=== PATIENT | female | born 1985 | race Hispanic/Latino ===

== ENCOUNTER 2018-12-17 19:41 | Emergency (ER) | payer BC ==
[~2018-12-17] VITALS: Ht 152.4 cm; Wt 79.4 kg
[2018-12-17] MEDS ORDERED: ONDANSETRON HCL INJ 2MG/ML 2ML 2 MG/ML VIAL ONE (19:54)
[2018-12-17] MEDS ORDERED: SODIUM CHLORIDE 0.9% 1000ML 1,000 ML ONE (19:55)
[2018-12-17] MEDS ORDERED: ONDANSETRON HCL INJ 2MG/ML 2ML 2 MG/ML VIAL IV STA (19:57)
[2018-12-17] MEDS ORDERED: SODIUM CHLORIDE 0.9% 1000ML 1,000 ML IV ONE (20:00)
[2018-12-17 20:09] LABS: BASOPHILS % 0.3 % (0.0-1.0); EOSINOPHILS % 0.1 % (0.0-6.0); HEMATOCRIT 41.3 % (34.2-44.1); HEMOGLOBIN 14.3 g/dL (12.0-16.0); LYMPHOCYTES # (AUTO) 2.5 (1.0-3.2); LYMPHOCYTES % 16.9 % (18.0-39.1); MEAN CORPUSCULAR HEMOGLOBIN 28.5 pg (28-32); MEAN CORPUSCULAR HGB CONC 34.6 g/dL (31-35); MEAN CORPUSCULAR VOLUME 82.4 fL (81-99); MONOCYTES # (AUTO) 0.6 (0.2-0.8); MONOCYTES % 3.8 % (4.4-11.3); NEUTROPHILS # (AUTO) 11.6 (2.1-6.9); NEUTROPHILS % 78.4 % (38.7-80.0); PLATELET COUNT 200 x10e3/uL (140-360); RED BLOOD COUNT 5.01 x10e6/uL (3.6-5.1); RED CELL DISTRIBUTION WIDTH 13.1 % (11.7-14.4)
[2018-12-17] MEDS ORDERED: AMMONIA AROMATIC INHAL 0.33 ML AMP INH ONE (20:11)
[2018-12-17] MEDS ORDERED: METOCLOPRAMIDE HCL 10 MG/2ML VIAL IV ONE (20:15)
[2018-12-17] MEDS ORDERED: MECLIZINE HCL 12.5 MG TAB PO ONE (20:15)
[2018-12-17] MEDS ORDERED: DIPHENHYDRAMINE HCL INJ 50 MG/ML VIAL IV ONE (20:15)
[2018-12-17] MEDS ORDERED: MECLIZINE HCL 12.5 MG TAB ONE (20:16)
[2018-12-17 20:22] LABS: ALANINE AMINOTRANSFERASE 49 IU/L (0-55); ALBUMIN 4.2 g/dL (3.5-5.0); ALBUMIN/GLOBULIN RATIO 1.4 (0.8-2.0); ALKALINE PHOSPHATASE 65 IU/L (40-150); ANION GAP 11.5 mmol/L (8-16); BLOOD UREA NITROGEN 15 mg/dL (7-26); BUN/CREATININE RATIO 19 (6-25); CALCIUM 9.4 mg/dL (8.4-10.2); CARBON DIOXIDE 20 mmol/L (22-29); CHLORIDE 106 mmol/L (98-107); CREATININE, SERUM 0.78 mg/dL (0.57-1.11); EST GLOMERULAR FILTRATION RATE > 60 ML/MIN (60-); GLUCOSE 111 mg/dL (74-118); LIPASE 33 U/L (8-78); POTASSIUM 3.5 mmol/L (3.5-5.1); SODIUM 134 mmol/L (136-145)
[2018-12-17 21:02] LABS: BILIRUBIN,URINE NEGATIVE (NEGATIVE); CLARITY,URINE SL CLOUDY (CLEAR); COLOR,URINE YELLOW (YELLOW); KETONES,URINE NEGATIVE (NEGATIVE); LEUKOCYTE ESTERASE ,URINE TRACE (NEGATIVE); NITRITE,URINE NEGATIVE (NEGATIVE); PROTEIN,URINE DIPSTICK NEGATIVE (NEGATIVE); URINE UROBILINOGEN 0.2 mg/dL (0.2 - 1)
[2018-12-17 21:22] LABS: BACTERIA,URINE FEW /HPF; EPITHELIAL CELLS,URINE MODERATE /LPF
--- NOTE | 2018-12-17 23:38 | Diagnostic Imaging Report ---
CT BRAIN WO HISTORY: Dizziness, vomiting COMPARISON: None. TECHNIQUE: Noncontrast axial scans were obtained from skull base to the vertex. Coronal and sagittal reconstructions obtained from the axial data. One or more of the following dose reduction techniques were used: Automated exposure control, adjustment of the mA and/or kV according to patient size, and/or utilization of iterative reconstruction technique. DISCUSSION: Scalp/Skull: Unremarkable. Brain sulci: Appropriate for patient's age. Ventricles: Normal in size and configuration. No hydrocephalus. Extra-axial spaces: No masses or fluid collections. Parenchyma: No abnormal densities. No mass, hemorrhage, or large vascular territory acute infarct. Dural sinuses: No abnormal densities. Sellar/Suprasellar region: Intact. Skull base: Intact. Incidental findings: None. IMPRESSION: No intracranial abnormalities. Signed by: Dr. Artie Leavitt M.D. on 12/17/2018 11:35 PM
[2018-12-18] MEDS ORDERED: MECLIZINE HCL12.5 MG PO (00:29)
[2018-12-18] MEDS ORDERED: ZOFRAN4 MG SL (00:29)
[2018-12-18 00:35] VITALS: BP 110/68
== END 2018-12-18 00:42 | disposition home or self-care (01) ==
LOC: ER 19:41
DX: R42 Dizziness and giddiness (principal); R11.2 Nausea with vomiting, unspecified; H81.13 Benign paroxysmal vertigo, bilateral
CPT/HCPCS: 36415; 70450; 80053; 81001; 81025; 83690; 85025; 96374; 96375; 99284; J2405; J2765; J7030; J8597

== ENCOUNTER 2020-09-29 08:33 | Emergency (ER) | payer BC ==
[~2020-09-29] VITALS: Ht 152.4 cm; Wt 68.5 kg
[~2020-09-29 08:33] MED LIST: MECLIZINE HCL12.5 MG PO; ZOFRAN4 MG SL
[2020-09-29] MEDS ORDERED: METHYLPREDNISOLONE SOD SUCC 125 MG/2ML VIAL IV STA (09:01)
[2020-09-29] MEDS ORDERED: METOCLOPRAMIDE HCL 10 MG/2ML VIAL IV STA (09:01)
[2020-09-29] MEDS ORDERED: SODIUM CHLORIDE 0.9% 1000ML 1,000 ML IV STA (09:01)
[2020-09-29] MEDS ORDERED: KETOROLAC TROMETHAMINE 30 MG/ML VIAL IV STA (09:01)
[2020-09-29] MEDS ORDERED: ONDANSETRON HCL INJ 2MG/ML 2ML 2 MG/ML VIAL IV STA (09:01)
[2020-09-29] MEDS ORDERED: SODIUM CHLORIDE 0.9% 1000ML 1,000 ML ONE (09:15)
[2020-09-29] MEDS ORDERED: METHYLPREDNISOLONE SOD SUCC 125 MG/2ML VIAL ONE (09:15)
[2020-09-29] MEDS ORDERED: DIPHENHYDRAMINE HCL INJ 50 MG/ML VIAL IV ONE (09:15)
[2020-09-29 10:43] VITALS: BP 114/71
== END 2020-09-29 10:45 | disposition home or self-care (01) ==
LOC: FSED 09:00
DX: R51.9 Headache, unspecified (principal); R11.2 Nausea with vomiting, unspecified
CPT/HCPCS: 70450; 96374; 96375; 96376; 99283; J1200; J1885; J2405; J2765; J2930; J7030

== ENCOUNTER 2020-09-30 04:53 | Inpatient (IN) | payer BC ==
[~2020-09-30] VITALS: Ht 152.4 cm; Wt 68.5 kg
[2020-09-30] MEDS ORDERED: ONDANSETRON HCL INJ 2MG/ML 2ML 2 MG/ML VIAL IV STA (06:37)
[2020-09-30] MEDS ORDERED: KETOROLAC TROMETHAMINE 30 MG/ML VIAL IV STA (06:37)
[2020-09-30] MEDS ORDERED: DIPHENHYDRAMINE HCL INJ 50 MG/ML VIAL IV ONE (06:45)
[2020-09-30] MEDS ORDERED: METOCLOPRAMIDE HCL 10 MG/2ML VIAL IV ONE ×2 (06:45→09:15)
[2020-09-30] MEDS ORDERED: ACETAMIN/BUTALBITAL/CAFFEINE TAB PO ONE (06:45)
[2020-09-30] MEDS ORDERED: MAGNESIUM SULFATE 2GM/50ML 50 ML IV ONE (06:45)
[2020-09-30 07:07] LABS: ALANINE AMINOTRANSFERASE 35 IU/L (0-55); ALBUMIN 3.8 g/dL (3.5-5.0); ALBUMIN/GLOBULIN RATIO 1.2 (0.8-2.0); ALKALINE PHOSPHATASE 40 IU/L (40-150); ANION GAP 11.7 mmol/L (8-16); BLOOD UREA NITROGEN 14 mg/dL (7-26); BUN/CREATININE RATIO 19 (6-25); CALCIUM 8.3 mg/dL (8.4-10.2); CARBON DIOXIDE 20 mmol/L (22-29); CHLORIDE 111 mmol/L (98-107); CREATININE, SERUM 0.74 mg/dL (0.57-1.11); EST GLOMERULAR FILTRATION RATE > 60 ML/MIN (60-); GLUCOSE 105 mg/dL (74-118); POTASSIUM 3.7 mmol/L (3.5-5.1); SODIUM 139 mmol/L (136-145)
[2020-09-30 08:30] LABS: BASOPHILS % 0.2 % (0.0-1.0); HEMATOCRIT 39.9 % (34.2-44.1); HEMOGLOBIN 13.1 g/dL (12.0-16.0); LYMPHOCYTES # (AUTO) 2.2 (1.0-3.2); LYMPHOCYTES % 11.5 % (18.0-39.1); MEAN CORPUSCULAR HEMOGLOBIN 28.1 pg (28-32); MEAN CORPUSCULAR HGB CONC 32.8 g/dL (31-35); MEAN CORPUSCULAR VOLUME 85.4 fL (81-99); MONOCYTES # (AUTO) 1.1 (0.2-0.8); MONOCYTES % 5.7 % (4.4-11.3); NEUTROPHILS # (AUTO) 15.9 (2.1-6.9); NEUTROPHILS % 81.8 % (38.7-80.0); PLATELET COUNT 237 x10e3/uL (140-360); RED BLOOD COUNT 4.67 x10e6/uL (3.6-5.1); RED CELL DISTRIBUTION WIDTH 12.8 % (11.7-14.4)
[2020-09-30 08:36] LABS: INR 0.97; PROTHROMBIN TIME 13.5 seconds (11.9-14.5)
[2020-09-30] MEDS ORDERED: SODIUM CHLORIDE 0.9% 1000ML 1,000 ML IV STA (09:06)
[2020-09-30] MEDS ORDERED: PROCHLORPERAZINE MALEATE TAB 10 MG TAB PO PRN (09:15)
[2020-09-30] MEDS ORDERED: METHYLPREDNISOLONE SOD SUCC 125 MG/2ML VIAL IV ONE (09:15)
[2020-09-30] MEDS ORDERED: FAMOTIDINE 20 MG/2 ML VIAL IV ONE (09:15)
[2020-09-30] MEDS ORDERED: METHYLPREDNISOLONE SOD SUCC 125 MG/2ML VIAL ONE (09:28)
[2020-09-30] MEDS ORDERED: CAFFEINE CITRATE 60 MG/3 ML VIAL IV ONE (09:28)
[2020-09-30] MEDS ORDERED: SUMATRIPTAN SUCCINATE 25 MG TAB PO ONE (09:40)
[2020-09-30] MEDS ORDERED: SODIUM CHLORIDE 0.9% IV ONE (09:45)
[2020-09-30] MEDS ORDERED: METHYLPREDNISOLONE SOD SUCC IV ONE (09:45)
[2020-09-30 11:01] LABS: AMPHETAMINES SCREEN,URINE NEGATIVE (NEGATIVE); BENZODIAZEPINES SCREEN,URINE NEGATIVE (NEGATIVE); PHENCYCLIDINE SCREEN,URINE NEGATIVE (NEGATIVE)
[2020-09-30] MEDS ORDERED: SODIUM CHLORIDE 0.9% 50ML 50 ML ONE (11:04)
[2020-09-30] MEDS ORDERED: GADOBENATE DIMEGLUMINE 1 ML IV ONE (11:04)
[2020-09-30 12:45] VITALS: BP 103/77
[2020-09-30 15:51] VITALS: BP 103/77
[2020-09-30 15:58] VITALS: BP 115/85
[2020-09-30] MEDS: TOPIRAMATE 25 MG TAB PO SCH (16:15)
[2020-09-30] MEDS: KETOROLAC TROMETHAMINE 30 MG/ML VIAL IM PRN (16:15)
[2020-09-30] MEDS: KETOROLAC TROMETHAMINE 30 MG/ML VIAL IV PRN (19:39)
[2020-09-30 20:00] VITALS: BP 113/72
[2020-09-30 21:00] VITALS: BP_SYST 113; BP_SYST 115; BP_DIAS 72; BP_DIAS 85
[2020-09-30] MEDS: MELATONIN 5 MG TABLET PO PRN (23:06)
[2020-09-30] MEDS: DIPHENHYDRAMINE HCL 25 MG CAP PO PRN (23:06)
[2020-10-01] VITALS (9 sets, daily range): BP systolic 92–136; BP diastolic 56–97
[2020-10-01] MEDS: KETOROLAC TROMETHAMINE 30 MG/ML VIAL IV PRN ×3 (01:40→20:09)
[2020-10-01] MEDS: KETOROLAC TROMETHAMINE 30 MG/ML VIAL IM PRN (04:08)
[2020-10-01 06:11] LABS: BASOPHILS % 0.2 % (0.0-1.0); EOSINOPHILS # (AUTO) 0.1 (0.0-0.4); EOSINOPHILS % 0.6 % (0.0-6.0); HEMATOCRIT 37.7 % (34.2-44.1); HEMOGLOBIN 12.4 g/dL (12.0-16.0); LYMPHOCYTES # (AUTO) 1.7 (1.0-3.2); LYMPHOCYTES % 9.3 % (18.0-39.1); MEAN CORPUSCULAR HGB CONC 32.9 g/dL (31-35); MEAN CORPUSCULAR VOLUME 85.1 fL (81-99); MONOCYTES # (AUTO) 0.9 (0.2-0.8); NEUTROPHILS # (AUTO) 15.8 (2.1-6.9); NEUTROPHILS % 84.2 % (38.7-80.0); PLATELET COUNT 229 x10e3/uL (140-360); RED BLOOD COUNT 4.43 x10e6/uL (3.6-5.1); RED CELL DISTRIBUTION WIDTH 13.2 % (11.7-14.4)
[2020-10-01 06:29] LABS: ALANINE AMINOTRANSFERASE 25 IU/L (0-55); ALBUMIN 3.8 g/dL (3.5-5.0); ALBUMIN/GLOBULIN RATIO 1.4 (0.8-2.0); ALKALINE PHOSPHATASE 47 IU/L (40-150); BLOOD UREA NITROGEN 16 mg/dL (7-26); BUN/CREATININE RATIO 20 (6-25); CALCIUM 8.3 mg/dL (8.4-10.2); CARBON DIOXIDE 18 mmol/L (22-29); CHLORIDE 112 mmol/L (98-107); CREATININE, SERUM 0.79 mg/dL (0.57-1.11); EST GLOMERULAR FILTRATION RATE > 60 ML/MIN (60-); GLUCOSE 104 mg/dL (74-118); SODIUM 139 mmol/L (136-145)
[2020-10-01] MEDS: TOPIRAMATE 25 MG TAB PO SCH ×2 (08:46→17:11)
[2020-10-01] MEDS: ONDANSETRON HCL INJ 2MG/ML 2ML 2 MG/ML VIAL IV PRN ×2 (08:46→20:09)
[2020-10-01] MEDS ORDERED: CHLORPROMAZINE HCL INJ 25 MG/ML AMP IM ONE ×2 (11:45→20:15)
[2020-10-01] MEDS ORDERED: VALPROATE SOD INJ 500 MG in SODIUM CHLORIDE 0.9% 100 ML 100 ML INJ SCH (13:00)
[2020-10-01 15:30] LABS: APPEARANCE,CSF CLEAR (CLEAR); COLOR,CSF COLORLESS (COLORLESS)
[2020-10-01 15:31] LABS: TUBE NUMBER 3; WHITE BLOOD CELL,CSF 3 cells/uL (0-5)
[2020-10-01 15:48] LABS: TOTAL PROTEIN,CSF 45.1 mg/dL (15-40)
[2020-10-01] MEDS ORDERED: CHLORPROMAZINE HCL INJ 25 MG/ML AMP INJ PRN (19:15)
[2020-10-01] MEDS: MELATONIN 5 MG TABLET PO PRN (20:14)
[2020-10-02] VITALS (8 sets, daily range): BP systolic 105–118; BP diastolic 66–79
[2020-10-02] MEDS: DIPHENHYDRAMINE HCL 25 MG CAP PO PRN (03:15)
[2020-10-02] MEDS: KETOROLAC TROMETHAMINE 30 MG/ML VIAL IV PRN ×2 (03:15→09:15)
[2020-10-02] MEDS: TOPIRAMATE 25 MG TAB PO SCH (08:52)
[2020-10-02] MEDS: ONDANSETRON HCL INJ 2MG/ML 2ML 2 MG/ML VIAL IV PRN (08:58)
[2020-10-02] MEDS: TOPIRAMATE 100 MG TAB PO SCH ×2 (12:41→15:56)
[2020-10-02] MEDS ORDERED: CHLORPROMAZINE HCL INJ 25 MG/ML AMP IV ONE (13:00)
[2020-10-02] MEDS ORDERED: ACETAZOLAMIDE SODIUM 500 MG/VIAL IV SCH (13:00)
[2020-10-02] MEDS ORDERED: CHLORPROMAZINE HCL INJ 25 MG in SODIUM CHLORIDE 0.9% 50ML 50 ML IV ONE (13:15)
[2020-10-02] MEDS ORDERED: SODIUM CHLORIDE 0.9% 250ML 250 ML ONE (13:16)
[2020-10-02] MEDS ORDERED: CHLORPROMAZINE HCL INJ 25 MG/ML AMP INJ PRN (13:30)
[2020-10-02] MEDS ORDERED: METHYLPREDNISOLONE SOD SUCC 125 MG/2ML VIAL IV ONE (15:00)
[2020-10-02] MEDS ORDERED: ACETAZOLAMIDE 500 MG CAP PO ONE (15:00)
[2020-10-02] MEDS: ACETAZOLAMIDE SODIUM 500 MG/VIAL IV SCH (21:00)
[2020-10-02] MEDS: MELATONIN 5 MG TABLET PO PRN (22:28)
[2020-10-03] VITALS (8 sets, daily range): BP systolic 98–113; BP diastolic 62–76
[2020-10-03] MEDS: KETOROLAC TROMETHAMINE 30 MG/ML VIAL IV PRN (03:10)
[2020-10-03] MEDS: ONDANSETRON HCL INJ 2MG/ML 2ML 2 MG/ML VIAL IV PRN ×4 (03:10→23:50)
[2020-10-03] MEDS: ACETAZOLAMIDE SODIUM 500 MG/VIAL IV SCH ×3 (08:01→20:43)
[2020-10-03] MEDS: TOPIRAMATE 100 MG TAB PO SCH ×2 (08:01→17:00)
[2020-10-03] MEDS: KETOROLAC TROMETHAMINE 30 MG/ML VIAL IM PRN (10:00)
[2020-10-03] MEDS: METHYLPREDNISOLONE SOD SUCC 125 MG/2ML VIAL IV SCH (14:41)
[2020-10-03] MEDS: MORPHINE SULFATE INJ 2 MG/ML SYR IV PRN ×2 (19:30→23:57)
[2020-10-04] VITALS (8 sets, daily range): BP systolic 104–118; BP diastolic 55–81
[2020-10-04] MEDS: ONDANSETRON HCL INJ 2MG/ML 2ML 2 MG/ML VIAL IV PRN ×3 (06:14→17:56)
[2020-10-04] MEDS: MORPHINE SULFATE INJ 2 MG/ML SYR IV PRN ×4 (06:14→22:00)
[2020-10-04] MEDS: ACETAZOLAMIDE SODIUM 500 MG/VIAL IV SCH ×3 (09:04→21:31)
[2020-10-04] MEDS: TOPIRAMATE 100 MG TAB PO SCH (09:04)
[2020-10-04] MEDS: METHYLPREDNISOLONE SOD SUCC 125 MG/2ML VIAL IV SCH (09:04)
[2020-10-04] MEDS ORDERED: FAMOTIDINE 20 MG/2 ML VIAL IV NR (14:30)
[2020-10-04] MEDS ORDERED: SODIUM CHLORIDE 0.9% 500ML 500 ML IV ONE (14:30)
[2020-10-04] MEDS ORDERED: CYANOCOBALAMIN INJ 1,000 MCG/ML VIAL IM NR (14:30)
[2020-10-04] MEDS ORDERED: PROCHLORPERAZINE MALEATE TAB 10 MG TAB PO PRN (14:30)
[2020-10-04] MEDS ORDERED: KETOROLAC TROMETHAMINE 30 MG/ML VIAL IV NR (14:45)
[2020-10-04] MEDS ORDERED: CAFFEINE/SODIUM BENZOATE 500 MG/2ML VIAL IV NR (17:00)
[2020-10-04] MEDS: DIPHENHYDRAMINE HCL 25 MG CAP PO PRN (21:31)
[2020-10-04] MEDS: PROMETHAZINE 25MG/ NS 50ML (IV) IV PRN (22:09)
[2020-10-05] VITALS (7 sets, daily range): BP systolic 100–116; BP diastolic 62–91
[2020-10-05] MEDS: MORPHINE SULFATE INJ 2 MG/ML SYR IV PRN ×3 (02:21→22:14)
[2020-10-05] MEDS: PROMETHAZINE 25MG/ NS 50ML (IV) IV PRN ×2 (02:21→22:15)
[2020-10-05] MEDS: METHYLPREDNISOLONE SOD SUCC 125 MG/2ML VIAL IV SCH (08:56)
[2020-10-05] MEDS: ONDANSETRON HCL INJ 2MG/ML 2ML 2 MG/ML VIAL IV PRN (17:48)
[2020-10-05] MEDS: DIPHENHYDRAMINE HCL 25 MG CAP PO PRN (22:38)
[2020-10-06] VITALS (8 sets, daily range): BP systolic 92–112; BP diastolic 59–74
[2020-10-06 10:27] LABS: BASOPHILS % 0.3 % (0.0-1.0); EOSINOPHILS % 0.1 % (0.0-6.0); HEMOGLOBIN 14.1 g/dL (12.0-16.0); LYMPHOCYTES # (AUTO) 3.7 (1.0-3.2); MEAN CORPUSCULAR HEMOGLOBIN 28.3 pg (28-32); MEAN CORPUSCULAR HGB CONC 32.8 g/dL (31-35); MEAN CORPUSCULAR VOLUME 86.3 fL (81-99); MONOCYTES # (AUTO) 1.1 (0.2-0.8); MONOCYTES % 8.9 % (4.4-11.3); NEUTROPHILS # (AUTO) 7.7 (2.1-6.9); NEUTROPHILS % 60.1 % (38.7-80.0); PLATELET COUNT 202 x10e3/uL (140-360); RED BLOOD COUNT 4.98 x10e6/uL (3.6-5.1); RED CELL DISTRIBUTION WIDTH 13.2 % (11.7-14.4)
[2020-10-06 10:57] LABS: ANION GAP 11.9 mmol/L (8-16); BLOOD UREA NITROGEN 25 mg/dL (7-26); BUN/CREATININE RATIO 26 (6-25); CALCIUM 8.3 mg/dL (8.4-10.2); CARBON DIOXIDE 19 mmol/L (22-29); CHLORIDE 112 mmol/L (98-107); CREATININE, SERUM 0.95 mg/dL (0.57-1.11); EST GLOMERULAR FILTRATION RATE > 60 ML/MIN (60-); GLUCOSE 72 mg/dL (74-118); SODIUM 140 mmol/L (136-145)
[2020-10-06 11:00] LABS: POTASSIUM 2.9 mmol/L (3.5-5.1)
[2020-10-06] MEDS ORDERED: GADOBENATE DIMEGLUMINE 1 ML IV ONE (11:12)
[2020-10-06] MEDS: MORPHINE SULFATE INJ 2 MG/ML SYR IV PRN ×2 (11:30→23:26)
[2020-10-06] MEDS ORDERED: POTASSIUM CHLORIDE 10MEQ EA PO ONE ×2 (11:30→15:00)
[2020-10-06] MEDS: ONDANSETRON HCL INJ 2MG/ML 2ML 2 MG/ML VIAL IV PRN (11:30)
[2020-10-06] MEDS: PREDNISONE 20 MG TAB PO SCH (14:00)
[2020-10-06 16:09] LABS: IGG/ALB RATIO CSF 0.11 (0.00-0.25)
[2020-10-06 17:00] LABS: CSF/SERUM ALBUMIN INDEX 8 (0-8)
[2020-10-06] MEDS: TOPIRAMATE 100 MG TAB PO SCH (17:08)
[2020-10-06] MEDS: HYDROCODONE/APAP 5MG-325MG TAB PO PRN (18:20)
[2020-10-06] MEDS: PROMETHAZINE 25MG/ NS 50ML (IV) IV PRN (23:26)
[2020-10-07] VITALS: BP 112/68
[2020-10-07 04:00] VITALS: BP 110/68
[2020-10-07 06:39] LABS: BASOPHILS % 0.1 % (0.0-1.0); EOSINOPHILS % 0.1 % (0.0-6.0); HEMATOCRIT 39.9 % (34.2-44.1); LYMPHOCYTES # (AUTO) 2.5 (1.0-3.2); LYMPHOCYTES % 20.7 % (18.0-39.1); MEAN CORPUSCULAR HEMOGLOBIN 29.6 pg (28-32); MEAN CORPUSCULAR HGB CONC 35.1 g/dL (31-35); MEAN CORPUSCULAR VOLUME 84.4 fL (81-99); MONOCYTES # (AUTO) 0.9 (0.2-0.8); MONOCYTES % 7.2 % (4.4-11.3); NEUTROPHILS # (AUTO) 8.7 (2.1-6.9); NEUTROPHILS % 70.9 % (38.7-80.0); PLATELET COUNT 219 x10e3/uL (140-360); RED BLOOD COUNT 4.73 x10e6/uL (3.6-5.1); RED CELL DISTRIBUTION WIDTH 13.1 % (11.7-14.4)
[2020-10-07 06:49] LABS: ALANINE AMINOTRANSFERASE 13 IU/L (0-55); ALBUMIN 3.5 g/dL (3.5-5.0); ALBUMIN/GLOBULIN RATIO 1.2 (0.8-2.0); ALKALINE PHOSPHATASE 37 IU/L (40-150); ANION GAP 12.5 mmol/L (8-16); BLOOD UREA NITROGEN 20 mg/dL (7-26); BUN/CREATININE RATIO 27 (6-25); CALCIUM 8.2 mg/dL (8.4-10.2); CARBON DIOXIDE 16 mmol/L (22-29); CHLORIDE 114 mmol/L (98-107); CREATININE, SERUM 0.75 mg/dL (0.57-1.11); EST GLOMERULAR FILTRATION RATE > 60 ML/MIN (60-); GLUCOSE 85 mg/dL (74-118); POTASSIUM 3.5 mmol/L (3.5-5.1); SODIUM 139 mmol/L (136-145)
[2020-10-07 07:43] VITALS: BP 100/64
[2020-10-07 08:47] VITALS: BP 100/64
[2020-10-07] MEDS ORDERED: POTASSIUM CHLORIDE 20 MEQ TAB CR PO ONE (09:40)
[2020-10-07] MEDS ORDERED: OYST-CAL-D 500MG TABLET PO ONE (09:50)
[2020-10-07] MEDS: PREDNISONE 20 MG TAB PO SCH (09:55)
[2020-10-07] MEDS: TOPIRAMATE 100 MG TAB PO SCH ×2 (09:55→17:30)
[2020-10-07 11:13] VITALS: BP 105/67
[2020-10-07] MEDS: MORPHINE SULFATE INJ 2 MG/ML SYR IV PRN (13:04)
[2020-10-07 16:15] VITALS: BP 98/66
[2020-10-07] MEDS: HYDROCODONE/APAP 5MG-325MG TAB PO PRN (17:46)
== END 2020-10-07 19:09 | disposition short-term general hospital (02) | DRG 71 ==
LOC: ER 04:55 → ERHOLD 07:03 → OBSVTOIN 11:41 → MED/SURG3 12:20
PROVIDERS: ADMIT Internal Medicine; ATTEND Internal Medicine
PROC: 009U3ZX Drainage of Spinal Canal, Percutaneous Approach, Diagnostic (ICD-10-PCS; principal; 2020-10-01)
PROC: B01B1ZZ Fluoroscopy of Spinal Cord using Low Osmolar Contrast (ICD-10-PCS; 2020-10-01)
DX: G96.81 Intracranial hypotension (principal); G96.02 Spinal cerebrospinal fluid leak, spontaneous; I87.1 Compression of vein; Z88.0 Allergy status to penicillin; E87.6 Hypokalemia; Z20.822 Contact with and (suspected) exposure to COVID-19
CPT/HCPCS: 36415; 62328; 70450; 70544; 70549; 70553; 72156; 72157; 72158; 74470; 80048; 80053; 80307; 81025; 82040; 82140; 82248; 82784; 82945; 83516; 83916; 84132; 84157; 84443; 85025; 85610; 85651; 86021; 86039; 86140; 86160; 86225; 86235; 86255; 86256; 86376; 86592; 86789; 87070; 87205; 87476; 89051; 93005; 99284; J0706; J1885; J2270; J2405; J2550; J2765; J2930; J3230; J3475; J7030; J7040; J7050; J7512; U0002